=== PATIENT | male | born 1960 | race Caucasian/White ===

== ENCOUNTER 2017-11-02 03:30 | Inpatient (IN) | payer MEDICAID, OTHER ==
[2017-11-02 03:40] VITALS: O2SAT 99
--- NOTE | 2017-11-02 03:46 | ED PDOC ---
Psych Transfer Clearance - Clearance Statement Clearance Statement: Reviewed vital signs, lab results and transfer papers. Patient clinically stable for psychiatric admission. pt cleared by dr dempsey
[2017-11-02] MEDS ORDERED: Magnesium Hydroxide Susp 30 ml UD PO PRN (04:19)
[2017-11-02] MEDS ORDERED: DiphenhydrAMINE 50 mg/ml Inj IM PRN (04:19)
[2017-11-02] MEDS ORDERED: Alum-Mag Hydrox-Simethicone Susp (30 mL) PO PRN (04:19)
--- NOTE | 2017-11-02 04:41 | PCM.BM ---
<Alexander Calderon - Last Filed: 11/02/17 04:40> Treatment Plan Problems - Problems identified on initial assessmt Hopelessness/Helplessness Date Initiated: 11/02/17 Time Initiated: 04:41 Assessment reference: NA Status: Active Treatment assets and liabiliti Patient Assests: cooperative, physically healthy, negotiates basic needs Patient Liabilities: live alone, poor support system - Milieu Protocol Maintain good personal hygiene: daily Remind patient to perform daily oral care , every other day Encourage regular showers Conduct patient checks and document Observation sheet: Q15 minutes Maintain personal safety: every shift Educate patient to report safety concerns to staff, every shift Monitor environment for contraband/sharps Medication safety: Monitor for expected outcome, potential side effects: every shift, Assess barriers to learning: every shift, Assess readiness for medication education: every shift <Vance Farfan - Last Filed: 11/08/17 10:46> - Diagnosis (1) Depression Status: Acute Interventions: psychotherapy, pharmacotherapy 11/08/17 10:45
--- NOTE | 2017-11-02 15:24 | PCM.PSYCH ---
Initial Psychiatric Evaluation - Initial Psychiatric Evaluation Type of Admission: Voluntary Legal Status: Capacity Chief Complaint (in patient's own words): I just wanted to take away my anxiety Patient's Reaction to Hospitalization: pt requested help History of Present Illness and Precipitating Events: pt is 57ys old male with previous psychiatric diagnosis of depression, ageneralized anxiety, sedative anxiolytic and opiate abuse , pt currently under care of private psychiatrist, has been feeling increasingly depressed and anxious , as he had multiple losses in the past year including the of his mother and also of his niece by over dose on opiates , pt also is currently unemployed , rsiding with his fathe and having multiple financial difficulties, for the past month patient started having self mutilating behavior cutting his wrist superficially to relieve his anxiety and the emotional pain pt has been spending his day in bed feeling hopeless and helpless with low energy , pt reported for the past few days he felt incapacitated by his anxiety with overwhelming fear and repeated panic attacks on day of evaluation pt started having suicidal ideation with plan to overdose on his xanax , took 15pills , came to ER seeking help pt on the unit presenting with depressed mood , increased anxiety and feelings of hopelessness, passive suicidal ideation without active plan on the unit, denied any current psychotic symptoms, denied any current thoughts of self harm Current Medications: Active Medications Generic Name Dose Route Start Last Admin Trade Name Freq PRN Reason Stop Dose Admin Acetaminophen 650 mg 11/02/17 04:19 Tylenol 325mg Tab PO Q4 PRN pain level 4-7 Al Hydrox/Mg Hydrox/Simethicone 30 ml 11/02/17 04:19 Maalox Plus 30 Ml PO Q4 PRN Dyspepsia Bupropion HCl 75 mg 11/03/17 09:00 Wellbutrin PO DAILY SARAH Clonazepam 0.5 mg 11/02/17 13:00 11/02/17 12:27 Klonopin PO 0.5 mg TID SARAH Administration Clonidine HCl 0.1 mg 11/02/17 11:33 11/02/17 12:32 Catapres PO 0.1 mg TID PRN Administration Opiate reversal Diphenhydramine HCl 50 mg 11/02/17 04:19 Benadryl IM Q6 PRN Extrapyramidal S/S Unable PO Diphenhydramine HCl 50 mg 11/02/17 04:19 Benadryl PO Q6 PRN Extrapyramidal Symptoms Diphenhydramine HCl 50 mg 11/02/17 04:36 Benadryl PO HS PRN Sleep Gabapentin 100 mg 11/02/17 13:00 11/02/17 12:31 Neurontin PO 100 mg TID SARAH Administration Haloperidol 5 mg 11/02/17 04:19 Haldol PO Q4 PRN Agitation Haloperidol Lactate 5 mg 11/02/17 04:19 Haldol IM Q4 PRN Agitation, Unable to Take PO Lorazepam 2 mg 11/02/17 04:19 Ativan IM Q4 PRN Anxiety/Agitation,Unable PO Magnesium Hydroxide 30 ml 11/02/17 04:19 Milk Of Magnesia PO HS PRN Constipation Paroxetine HCl 40 mg 11/02/17 22:00 Paxil PO HS SARAH Past Psychiatric History - Past Psychiatric History Explanation of prior treatment: pt has hx of depression and anxiety for past ten years one hospitalization in [facility] after an attempt of suicide by overdose History of ETOH/Drug Use: hx of alxohol and opiate abuse Pertinent Medical Hx (Current Medical&Sleep Prob, Allergies): Allergies Allergy/AdvReac Type Severity Reaction Status Date / Time cefuroxime [From Ceftin] Allergy Mild RASH Verified 11/02/17 03:42 Mental Status Examination - Personal Presentation Personal Presentation: Looks older than stated age Additional comments: disheveled unkempt - Affect Affect: Constricted, Depressed - Motor Activity Motor Activity: Psychomotor Retardation - Reliability in Providing Information Reliability in Providing Information: Poor, due to altered mood - Speech Speech: Relevant - Mood Mood: Depressed, Anxious - Formal Thought Process Formal Thought Process: Circumstantial - Obsessions/Compulsions Obsessions: No Compulsions: No - Cognitive Functions Orientation: Person, Place, Situation Sensorium: Alert Attention/Concentration: Attentive Judgement: Imparied, as evidence by: Poor judgement, Imparied, as evidence by: Lack of insight into illness - Risk Risk: Suicidal, Withdrawal, Self-mutilation, Diminished functioning - Strength & Assets Inventory Strength & Assets Inventory: Family support - Limitations Additional comments: unemployed DSM 5 DX - DSM 5 DSM 5 Diagnosis: major depression recurrent severe without psychotic features generalized anxiety disorder sedative anxiolytic abuse opiate abuse - Recommended/Plan of Treatment Treatment Recommendations and Plan of Treatment: stat klonopin 0.5mg tid, down titrate gradually paxil 40mg qhs seroquel 100mg tid clonodine 0.1mg tid prn for opiate withdrawal motivational group and supportive therapy
--- NOTE | 2017-11-02 17:40 | CP.PCM.CON ---
History of Present Illness - History of Present Illness History of Present Illness: 57 yo male with history of depression and opiate abuse admitted to psyche unit because of worsening depression and suicidal ideation. Review of Systems - Review of Systems All systems: reviewed and no additional remarkable complaints except (aside from those mentioned above, 12 point system review were negative by me) Past Patient History - Tetanus Immunizations Tetanus Immunization: Unknown - Past Social History Smoking Status: Former Smoker Chewing Tobacco Use: No Cigar Use: No Alcohol: None Drugs: Opiates - CARDIAC Hx Cardiac Disorders: No - PULMONARY Hx Respiratory Disorders: No - NEUROLOGICAL Hx Neurological Disorder: No - HEENT Hx HEENT Problems: No - RENAL Hx Chronic Kidney Disease: No - ENDOCRINE/METABOLIC Hx Endocrine Disorders: No - HEMATOLOGICAL/ONCOLOGICAL Hx Blood Disorders: No - INTEGUMENTARY Hx Dermatological Problems: No - MUSCULOSKELETAL/RHEUMATOLOGICAL Hx Musculoskeletal Disorders: No - GASTROINTESTINAL Hx Gastrointestinal Disorders: No - GENITOURINARY/GYNECOLOGICAL Hx Genitourinary Disorders: No - PSYCHIATRIC Hx Substance Use: No - SURGICAL HISTORY Hx Surgeries: No - ANESTHESIA Hx Anesthesia: No Meds Allergies/Adverse Reactions: Allergies Allergy/AdvReac Type Severity Reaction Status Date / Time cefuroxime [From Ceftin] Allergy Mild RASH Verified 11/02/17 03:42 - Medications Medications: Current Medications Acetaminophen (Tylenol 325mg Tab) 650 mg PO Q4 PRN PRN Reason: pain level 4-7 Al Hydrox/Mg Hydrox/Simethicone (Maalox Plus 30 Ml) 30 ml PO Q4 PRN PRN Reason: Dyspepsia Bupropion HCl (Wellbutrin) 75 mg PO DAILY [facility] Clonazepam (Klonopin) 0.5 mg PO TID [facility] Last Admin: 11/02/17 12:27 Dose: 0.5 mg Clonidine HCl (Catapres) 0.1 mg PO TID PRN PRN Reason: Opiate reversal Last Admin: 11/02/17 12:32 Dose: 0.1 mg Diphenhydramine HCl (Benadryl) 50 mg IM Q6 PRN PRN Reason: Extrapyramidal S/S Unable PO Diphenhydramine HCl (Benadryl) 50 mg PO Q6 PRN PRN Reason: Extrapyramidal Symptoms Diphenhydramine HCl (Benadryl) 50 mg PO HS PRN PRN Reason: Sleep Gabapentin (Neurontin) 100 mg PO TID [facility] Last Admin: 11/02/17 12:31 Dose: 100 mg Haloperidol (Haldol) 5 mg PO Q4 PRN PRN Reason: Agitation Haloperidol Lactate (Haldol) 5 mg IM Q4 PRN PRN Reason: Agitation, Unable to Take PO Lorazepam (Ativan) 2 mg IM Q4 PRN PRN Reason: Anxiety/Agitation,Unable PO Magnesium Hydroxide (Milk Of Magnesia) 30 ml PO HS PRN PRN Reason: Constipation Paroxetine HCl (Paxil) 40 mg PO HS SARAH Quetiapine Fumarate (Seroquel) 100 mg PO HS SARAH Quetiapine Fumarate (Seroquel) 100 mg PO BID [facility] Physical Exam - Constitutional Appears: No Acute Distress - Head Exam Head Exam: ATRAUMATIC - Eye Exam Eye Exam: absent: Scleral icterus - ENT Exam ENT Exam: Mucous Membranes Moist - Neck Exam Neck exam: Negative for: Meningismus - Respiratory Exam Respiratory Exam: absent: Rales, Rhonchi, Wheezes, Respiratory Distress - Cardiovascular Exam Cardiovascular Exam: REGULAR RHYTHM, +S1, +S2 - GI/Abdominal Exam GI & Abdominal Exam: Soft. absent: Tenderness - Rectal Exam Rectal Exam: Deferred - Back Exam Back exam: absent: tenderness - Neurological Exam Neurological exam: Alert, Oriented x3 - Psychiatric Exam Psychiatric exam: Normal Affect - Skin Skin Exam: Dry, Intact Results - Vital Signs Recent Vital Signs: Last Vital Signs Temp 98.2 F 11/02/17 03:31 Pulse 82 11/02/17 12:32 Resp 20 11/02/17 05:33 BP 142/95 H 11/02/17 12:32 Pulse Ox 99 11/02/17 03:31 Assessment & Plan (1) Depression Status: Acute Comment: psyche is managing
[2017-11-03 08:59] LABS: T4 8.9 ug/dl (5.5-11.0)
--- NOTE | 2017-11-03 12:15 | PCM.PYCHPN ---
Psychiatric Progress Note - Psychiatric Progress Note Patient seen today, length of contact: pt evaluated discussed with team chart reviewed Patient Chief Complaint: It is hard for me to get off the benzodiazepines Problems Identified/Issues Discussed: pt evaluated , seen in bed continues to be dysphoric, reported feeling anxious and irritable, due to psychological dependence on xanax psychoeducation provided, discussed with pt the addictive nature of benzo and the negative effect on mental status and depression,\ discussed increasing dose of neurontin to help with anxiety and pain encouraged pt to attend groups discussed referral to inpatient rehab to help with discharge pt denied any current suicidal or homicidal ideation, no reported side effects of medications Medical Problems: pt has hx of depression and anxiety for past ten years one hospitalization in [facility] after an attempt of suicide by overdose DSM 5 Symptoms Update: major depression recurrent severe xanax abuse generalizes anxiety disorder Medication Change: Yes (increase neurontin) Medical Record Reviewed: Yes Mental Status Examination - Cognitive Function Orientation: Person, Place, Situation Memory: Intact Attention: WNL Concentration: Poor Association: WNL Fund of Knowledge: WNL Decription of patient's judgement and insights: partial insight poor judgment - Mood Mood: Depressed, Anxious - Affect Affect: Constricted, Depressed - Speech Speech: Soft - Formal Thought Process Formal Thought Process: Circumstantial Psychotic Thoughts and Behaviors: pt denied perceptual disturbances - Suicidal Ideation Suicidal Ideation: No - Homicidal Ideation Homicidal Ideation: No Goal/Treatment Plan - Goal/Treatment Plan Need for Continued Stay: Remain at risks for inpatient hospitalization, Severe depression anxiety, Discharge may exacerbated symptoms Progress Toward Problem(s) and Goals/Treatment Plan: klonopin 0.5mg tid, down titrate gradually paxil 40mg qhs, increase neurontin 300mg tid seroquel 100mg tid clonodine 0.1mg tid prn for opiate withdrawal motivational group and supportive therapy
--- NOTE | 2017-11-04 14:08 | PCM.PYCHPN ---
Psychiatric Progress Note - Psychiatric Progress Note Patient seen today, length of contact: pt evaluated discussed with team chart reviewed Patient Chief Complaint: It still feel very anxious Problems Identified/Issues Discussed: pt evaluated ,seen in day room, less isolative reported continues to be depressed, relates that to feeling increasingly anxious, pt requesting increase in klonopin dose, psycho eduction provided, discussed with pt the addictive nature of klonopin , CBT provided in reference to dealing with anxiety and panic attacks discussed referral to inpatient rehab on discharge, discussed increasing dose of wellbutrin for depression pt denied any current suicidal or homicidal ideation, no reported side effects of medications Medical Problems: pt has hx of depression and anxiety for past ten years one hospitalization in [facility] after an attempt of suicide by overdose DSM 5 Symptoms Update: major dperession generalized anxiety disorder sedative anxiolytic abuse Medication Change: Yes (increase wellbutrin ) Medical Record Reviewed: Yes Mental Status Examination - Cognitive Function Orientation: Person, Place, Situation Memory: Intact Attention: WNL Concentration: Poor Association: WNL Fund of Knowledge: WNL Decription of patient's judgement and insights: partial insight poor judgment - Mood Mood: Depressed, Anxious - Affect Affect: Constricted, Depressed - Speech Speech: Soft - Formal Thought Process Formal Thought Process: Circumstantial Psychotic Thoughts and Behaviors: pt denied perceptual disturbances - Suicidal Ideation Suicidal Ideation: No - Homicidal Ideation Homicidal Ideation: No Goal/Treatment Plan - Goal/Treatment Plan Need for Continued Stay: Remain at risks for inpatient hospitalization, Severe depression anxiety, Discharge may exacerbated symptoms Progress Toward Problem(s) and Goals/Treatment Plan: klonopin 0.5mg tid, down titrate gradually paxil 40mg qhs, increase neurontin 300mg tid seroquel 100mg tid, increase wellbutrin 100mg daily clonodine 0.1mg tid prn for opiate withdrawal motivational group and supportive therapy
--- NOTE | 2017-11-05 15:32 | PCM.PYCHPN ---
Psychiatric Progress Note - Psychiatric Progress Note Patient seen today, length of contact: pt evaluated discussed with team chart reviewed Patient Chief Complaint: It need to get off the benzos Problems Identified/Issues Discussed: pt evaluated ,seen in day room, more kempt, more interactive with other patients , continues to report increased anxiety, discussed with pt gradual tapering off of klonopin , discussed attending inpatient rehab on discharge , pt denied any current suicidal or homicidal ideation, no reported side effects of medications Medical Problems: pt has hx of depression and anxiety for past ten years one hospitalization in [facility] after an attempt of suicide by overdose DSM 5 Symptoms Update: MAJOR DEPRESSION GENERALIZED ANXIETY DISORDER SEDATIVE ANXIOLYTIC USE DISORDER Medication Change: Yes (increase wellbutrin ) Medical Record Reviewed: Yes Mental Status Examination - Cognitive Function Orientation: Person, Place, Situation Memory: Intact Attention: WNL Concentration: Poor Association: WNL Fund of Knowledge: WNL Decription of patient's judgement and insights: partial insight poor judgment - Mood Mood: Depressed, Anxious - Affect Affect: Constricted, Depressed - Speech Speech: Soft - Formal Thought Process Formal Thought Process: Circumstantial Psychotic Thoughts and Behaviors: pt denied perceptual disturbances - Suicidal Ideation Suicidal Ideation: No - Homicidal Ideation Homicidal Ideation: No Goal/Treatment Plan - Goal/Treatment Plan Need for Continued Stay: Remain at risks for inpatient hospitalization, Severe depression anxiety, Discharge may exacerbated symptoms Progress Toward Problem(s) and Goals/Treatment Plan: klonopin 0.25mg tid, down titrate gradually paxil 40mg qhs, neurontin 300mg tid seroquel 100mg tid, increase wellbutrin 150mg daily motivational group and supportive therapy
[2017-11-06] MEDS: buPROPion SR 150 MG TABLET PO SCH (08:46)
--- NOTE | 2017-11-06 16:51 | PCM.PYCHPN ---
Psychiatric Progress Note - Psychiatric Progress Note Patient seen today, length of contact: pt evaluated discussed with team chart reviewed Patient Chief Complaint: It will go to rehab Problems Identified/Issues Discussed: pt evaluated ,seen in day room, presenting with brighter affect, reported mood less anxious, discussed gradual tapering and discontinuing of klonopin , pt more kempt, more interactive with other patients, no reported side effects with the increase in wellbutrin pt denied any current suicidal or homicidal ideation, no reported side effects of medications Medical Problems: pt has hx of depression and anxiety for past ten years one hospitalization in [facility] after an attempt of suicide by overdose DSM 5 Symptoms Update: major depression Medication Change: Yes (decrease klonopin) Medical Record Reviewed: Yes Mental Status Examination - Cognitive Function Orientation: Person, Place, Situation Memory: Intact Attention: WNL Concentration: Poor Association: WNL Fund of Knowledge: WNL Decription of patient's judgement and insights: partial insight poor judgment - Mood Mood: Depressed, Anxious - Affect Affect: Constricted, Depressed - Speech Speech: Soft - Formal Thought Process Formal Thought Process: Circumstantial Psychotic Thoughts and Behaviors: pt denied perceptual disturbances - Suicidal Ideation Suicidal Ideation: No - Homicidal Ideation Homicidal Ideation: No Goal/Treatment Plan - Goal/Treatment Plan Need for Continued Stay: Remain at risks for inpatient hospitalization, Severe depression anxiety, Discharge may exacerbated symptoms Progress Toward Problem(s) and Goals/Treatment Plan: klonopin 0.25daily paxil 40mg qhs, neurontin 300mg tid seroquel 100mg tid, wellbutrin 150mg daily motivational group and supportive therapy
[2017-11-07] MEDS: buPROPion SR 150 MG TABLET PO SCH (08:50)
--- NOTE | 2017-11-07 15:21 | PCM.PYCHPN ---
Psychiatric Progress Note - Psychiatric Progress Note Patient seen today, length of contact: pt evaluated discussed with team chart reviewed Patient Chief Complaint: I feel anxious without the klonopin Problems Identified/Issues Discussed: pt evaluated ,seen in day room, reported feeling anxious with discontinuation of klonopin, motivational and CBT therapy provided, discussed with pt the need to develop coping skills to deal with anxiety, also discussed negative effcts of benzodiazepne dependence , advised pt to comply with rehab program on discharge pt denied any current suicidal or homicidal ideation, no reported side effects of medications Medical Problems: pt has hx of depression and anxiety for past ten years one hospitalization in [facility] after an attempt of suicide by overdose DSM 5 Symptoms Update: major depression sedative anxiolytic dependence Medication Change: Yes (d/c klonopin) Medical Record Reviewed: Yes Mental Status Examination - Cognitive Function Orientation: Person, Place, Situation Memory: Intact Attention: WNL Concentration: Poor Association: WNL Fund of Knowledge: WNL Decription of patient's judgement and insights: partial insight poor judgment - Mood Mood: Neutral - Affect Affect: Constricted, Depressed - Speech Speech: Appropriate - Formal Thought Process Formal Thought Process: Circumstantial Psychotic Thoughts and Behaviors: pt denied perceptual disturbances - Suicidal Ideation Suicidal Ideation: No - Homicidal Ideation Homicidal Ideation: No Goal/Treatment Plan - Goal/Treatment Plan Need for Continued Stay: Remain at risks for inpatient hospitalization, Severe depression anxiety, Discharge may exacerbated symptoms Progress Toward Problem(s) and Goals/Treatment Plan: discontinue paxil 40mg qhs, neurontin 300mg tid seroquel 100mg tid, wellbutrin 150mg daily motivational group and supportive therapy
[2017-11-08] MEDS: buPROPion SR 150 MG TABLET PO SCH (09:13)
--- NOTE | 2017-11-08 11:04 | PCM.PYCHDC ---
Mental Status Examination - Mental Status Examination Orientation: Person, Place, Situation Memory: Intact Mood: Neutral Affect: Broad Speech: Appropriate Attention: WNL Concentration: WNL Association: WNL Fund of Knowledge: WNL Formal Thought Process: No Impairment Description of patient's judgement and insight: partial insight poor judgment Psychotic Thoughts and Behaviors: pt denied perceptual disturbances, non elicited Suicidal Ideation: No Current Homicidal Ideation?: No Discharge Summary - Discharge Note Reason for Hospitalization: pt is 57ys old male with previous psychiatric diagnosis of depression, generalized anxiety, sedative anxiolytic and opiate abuse , pt currently under care of private psychiatrist, has been feeling increasingly depressed and anxious , as he had multiple losses in the past year including the of his mother and also of his niece by over dose on opiates , pt also is currently unemployed , residing with his father and having multiple financial difficulties, for the past month patient started having self mutilating behavior cutting his wrist superficially to relieve his anxiety and the emotional pain pt has been spending his day in bed feeling hopeless and helpless with low energy , pt reported for the past few days he felt incapacitated by his anxiety with overwhelming fear and repeated panic attacks on day of evaluation pt started having suicidal ideation with plan to overdose on his xanax , took 15pills , came to ER seeking help pt on the unit presenting with depressed mood , increased anxiety and feelings of hopelessness, passive suicidal ideation without active plan on the unit, denied any current psychotic symptoms, denied any current thoughts of self harm Consultations:: List each consultation separately and include: 1. Reason for request. 2. Findings. 3. Follow-up Summary of Hospital Course include:: 1. Description of specific treatment plan utilized for patients during their course of treatmen. 2. Summarize the time- course for resolution of acute symptoms and/or regressed behaviors. 3. Describe issues identified and worked on during hospitalization. 4. Describe medication utilized. 5. Describe medical problems identified and treated. 6. Reassessment of suicide risk Summary of Hospital Course: pt on admission was started on klonopin 0.5mg tid for benzo withdrawal, gradually downtitrated pt reported being on subtex by private psychiatrist, pt was placed on clonidine protocol and monitored for symptoms and sign of withdrawal pt was placed on wellbutrin for depression and to help with cravings placed on neurontin and paxil for anxiety and depression Motivational therapy was provided in reference to substance use CBT provided in reference to anxiety and depression pt gradually presented with better mood, feeling less anxious and less depressed , with brighter affect, attended groups, participated in treatment on discharge mental status was stable, pt denied any current suicidal or homicidal ideation, denied perceptual disturbance pt was educated about the risk of possible relapse and overdose , pt understood the risk of relapse on benzo diazepines after care was arranged by child welfare social worker, [facility] - Diagnosis (1) Depression Current Visit: Yes Status: Acute - Final Diagnosis (DSM 5) Condition upon Discharge: FAIR DSM 5: major depression recurrent severe without psychotic features generalized anxiety disorder sedative anxiolytic abuse opiate abuse Disposition: HOME/ ROUTINE Follow-up Treatment Plan: discontinue paxil 40mg qhs, neurontin 300mg tid seroquel 100mg tid, wellbutrin 150mg daily motivational group and supportive therapy Prescriptions/Medication Reconciliation: buPROPion SR [Wellbutrin SR 150 MG] 150 mg PO DAILY 30 Days #30 tab Gabapentin [Neurontin] 300 mg PO TID 30 Days #90 cap PARoxetine [Paxil] 40 mg PO HS 30 Days #60 tab QUEtiapine [Seroquel] 100 mg PO BID 30 Days #60 tab QUEtiapine [Seroquel] 100 mg PO HS 30 Days #30 tab - Antipsychotic Medications Pt discharged on 2 or more routine antipsychotic medications: No
[2017-11-08 11:05] VITALS: RESP 20
[2017-11-08 18:41] VITALS: BP 151/76; PULSE 91; TEMP 97.3
== END 2017-11-08 21:20 | disposition home or self-care (01) | DRG 430 ==
LOC: H.ER 03:30 → H.PSYCH 03:45
PROVIDERS: ADMIT Psychiatry & Neurology Psychiatry; ATTEND Psychiatry & Neurology Psychiatry
PROC: HZ57ZZZ Individual Psychotherapy for Substance Abuse Treatment, Motivational Enhancement (ICD-10-PCS; principal; 2017-11-02)
PROC: GZHZZZZ Group Psychotherapy (ICD-10-PCS; 2017-11-02)
PROC: GZ58ZZZ Individual Psychotherapy, Cognitive-Behavioral (ICD-10-PCS; 2017-11-02)
PROC: GZ56ZZZ Individual Psychotherapy, Supportive (ICD-10-PCS; 2017-11-02)
DX: F33.2 Major depressive disorder, recurrent severe without psychotic features (principal); F11.10 Opioid abuse, uncomplicated; F13.10 Sedative, hypnotic or anxiolytic abuse, uncomplicated; F41.1 Generalized anxiety disorder; R45.851 Suicidal ideations; Z91.5 Personal history of self-harm; Z87.891 Personal history of nicotine dependence